=== PATIENT | female | born 2000 ===

== ENCOUNTER 2025-02-05 12:16 | Emergency (ER) | payer OTHER ==
[2025-02-05] MEDS: Ketorolac 30 MG/ML SDV IM ONE (12:46)
[2025-02-05 12:47] LABS: BASOPHILS ABSOLUTE AUTO 0.05 K/uL (0.00-0.20); BASOPHILS PERCENT AUTO 0.6 % (0.0-2.0); EOSINOPHILS ABSOLUTE AUTO 0.25 K/uL (0.00-0.50); HEMATOCRIT 39.2 % (34.0-46.0); HEMOGLOBIN 12.4 g/dL (11.7-15.5); IMMATURE GRAN ABSOLUTE AUTO 0.01 10^3/uL (0.00-0.04); IMMATURE GRAN PERCENT AUTO 0.1 % (0.0-0.4); LYMPHOCYTES ABSOLUTE AUTO 2.71 K/uL (0.50-3.50); MEAN CORPUSCULAR HEMOGLOBIN 27.1 pg (28.2-33.3); MEAN CORPUSCULAR HGB CONC 31.6 g/dL (31.7-36.0); MEAN CORPUSCULAR VOLUME 85.8 fL (84.0-98.0); MONOCYTES ABSOLUTE AUTO 0.57 K/uL (0.00-1.00); MONOCYTES PERCENT AUTO 6.7 % (2.0-14.0); NEUTROPHILS ABSOLUTE AUTO 4.88 K/uL (1.40-7.00); NEUTROPHILS PERCENT AUTO 57.6 % (45.0-80.0); PLATELET COUNT,PLT 293 K/uL (150-350); RED BLOOD CELL COUNT 4.57 M/uL (3.77-5.09); WHITE BLOOD CELL COUNT,WBC 8.5 K/uL (4.0-10.2)
[2025-02-05 13:08] LABS: LACTIC ACID 0.6 mmol/L (0.4-2.0)
[2025-02-05 13:09] LABS: INR 1.1 (0.9-1.1); PROTHROMBIN TIME 10.9 SEC (9.0-11.1)
[2025-02-05 13:14] LABS: ALBUMIN 3.8 g/dL (3.4-5.0); BILIRUBIN TOTAL 0.4 mg/dL (0.2-1.0); C-REACTIVE PROTEIN 0.69 mg/dL (0.05-0.30); CREATININE 0.8 mg/dL (0.51-1.17); EST CRCL DRUG DOSING (CG) 94.44 mL/min; POTASSIUM,K 4.3 mmol/L (3.5-5.1); PROTEIN TOTAL,TP 7.3 g/dL (6.4-8.2); TSH ULTRASENSITIVE 1.268 mIU/mL (0.358-3.740); URIC ACID 2.5 mg/dL (2.6-7.2)
[2025-02-05 13:21] LABS: CALCIUM 9.1 mg/dL (8.5-10.1)
[2025-02-08 09:47] LABS: RHEUMATOID FACTOR 10 IU/mL (0-14)
== END 2025-02-05 13:42 | disposition home or self-care (01) ==
LOC: LL.ED 12:16
DX: M25.50 Pain in unspecified joint (principal)
CPT/HCPCS: 36415; 80053; 83605; 83735; 84443; 84550; 85025; 85610; 85652; 86038; 86140; 86200; 86431; 96372; 99284; J1885

== ENCOUNTER 2025-02-26 11:49 | Emergency (ER) | payer MEDICAID | END 2025-02-26 14:00 | disposition home or self-care (01) | LOC: LL.ED 11:49 | DX: J10.1 Influenza due to other identified influenza virus with other respiratory manifestations (principal); E66.9 Obesity, unspecified; Z79.899 Other long term (current) drug therapy; Z68.35 Body mass index [BMI] 35.0-35.9, adult | CPT/HCPCS: 87428-QW; 87651; 99283 ==